=== PATIENT | female | born 1985 | race Two or more races ===

== ENCOUNTER 2017-07-15 15:03 | Emergency (ER) | payer MEDICAID ==
[~2017-07-15] VITALS: Ht 157.5 cm; Wt 90.7 kg
[2017-07-15 15:55] LABS: Basophils # (auto) 0 uL; Basophils % (auto) 0.3 % (0.0-2.0); Eosinophils # (auto) 0.1 uL; Hematocrit 42.7 % (36.0-46.0); Lymphocytes # (auto) 4.5 uL; Lymphocytes % (auto) 31.2 % (10.0-50.0); Mean Corpuscular Hemoglobin 30.4 pg (28.0-32.0); Mean Corpuscular Hgb Conc. 32.9 g/dL (32.0-36.0); Mean Corpuscular Volume 92.6 fL (80.0-100.0); Mean Platelet Volume 7.5 fL (6.9-10.8); Monocytes # (auto) 1.1 uL; Monocytes % (auto) 7.3 % (0.0-12.0); Neutrophils # (auto) 8.7 uL; Neutrophils % (auto) 60.2 % (37.0-80.0); Nucleated Red Blood Cells % 0.1 %; Platelet Count (auto) 322 10^3/uL (140-450); Red Cell Distribution Width 13.2 % (11.8-14.3); White Blood Cell 14.5 10^3/uL (4.4-10.8)
[2017-07-15 15:57] LABS: Albumin 3.6 g/dL (3.4-5.0); BUN/Creatinine Ratio 15.6; Calcium 9.3 mg/dL (8.5-10.1)
[2017-07-15 16:00] LABS: Bilirubin, Total 0.5 mg/dL (0.2-1.0)
[2017-07-15 16:27] LABS: Urine Bilirubin Negative (Negative); Urine Blood Negative /uL (Negative); Urine Color Yellow (Yellow); Urine Glucose Normal (Normal); Urine Ketone Negative (Negative); Urine Mucus FEW (None Seen); Urine Nitrite Negative (Negative); Urine RBC <1 /hpf (0 - 4); Urine Squamous Epithelial Cell MOD /hpf (<5); Urine Urobilinogen Normal (Negative); Urine pH 5.5 (5.0-8.0)
[2017-07-15 16:30] VITALS: BP 132/81
[2017-07-15] MEDS ORDERED: SODIUM CHLORIDE 0.9% 1,000 ML IVB ONE (16:54)
[2017-07-15] MEDS ORDERED: METOCLOPRAMIDE HCL 5MG/ml INJ 2ml VIAL IV ONE (17:00)
[2017-07-15] MEDS ORDERED: KETOROLAC TROMETH 30 MG/ML 1ML VIAL IV ONE (17:00)
[2017-07-15 17:17] LABS: Magnesium 2.6 mg/dL (1.6-2.6)
== END 2017-07-15 18:24 | disposition home or self-care (01) ==
LOC: ER 15:11
DX: N39.0 Urinary tract infection, site not specified (principal); K59.00 Constipation, unspecified
CPT/HCPCS: 36415; 74176; 80053; 81001; 83690; 83735; 84443; 84702; 85025; 96361; 96374; 96375; 99285; J1885; J2765

== ENCOUNTER 2018-09-06 13:15 | Emergency (ER) | payer MEDICAID ==
[~2018-09-06] VITALS: Ht 160 cm; Wt 95.3 kg
[2018-09-06 13:38] VITALS: BP 135/80
[2018-09-06] MEDS ORDERED: SODIUM CHLORIDE 0.9% 1,000 ML IVB ONE (14:01)
[2018-09-06 14:19] LABS: Urine Bacteria NONE SEEN /hpf (None Seen); Urine Blood Negative /uL (Negative); Urine Mucus FEW (None Seen); Urine Specific Gravity 1.026 (1.001-1.035); Urine WBC 1 /hpf (0 - 5)
[2018-09-06 14:21] LABS: Basophils # (auto) 0.1 uL; Basophils % (auto) 0.5 % (0.0-2.0); Eosinophils # (auto) 0.1 uL; Eosinophils % (auto) 0.7 % (0.0-7.0); Hematocrit 43.4 % (36.0-46.0); Hemoglobin 14.4 g/dL (12.2-16.2); Lymphocytes # (auto) 3.4 uL; Lymphocytes % (auto) 32.3 % (10.0-50.0); Mean Corpuscular Hemoglobin 30.6 pg (28.0-32.0); Mean Corpuscular Hgb Conc. 33.2 g/dL (32.0-36.0); Mean Corpuscular Volume 92.2 fL (80.0-100.0); Monocytes # (auto) 0.8 uL; Monocytes % (auto) 7.3 % (0.0-12.0); Neutrophils # (auto) 6.2 uL; Neutrophils % (auto) 59.2 % (37.0-80.0); Platelet Count (auto) 277 10^3/uL (140-450); Red Blood Cells 4.71 10^6/uL (4.0-5.20); Red Cell Distribution Width 13.5 % (11.8-14.3); White Blood Cell 10.5 10^3/uL (4.4-10.8)
[2018-09-06 14:32] LABS: Albumin 3.5 g/dL (3.4-5.0); BUN/Creatinine Ratio 10.1; Calcium 8.5 mg/dL (8.5-10.1); Potassium 4.3 mmol/L (3.5-5.1)
[2018-09-06 14:33] LABS: Magnesium 2.4 mg/dL (1.6-2.6)
[2018-09-06 14:33] LABS: Urine Pregnacy Test Negative (Negative)
[2018-09-06 14:34] LABS: Alcohol, Urine < 3.0 mg/dL (0-5); Amphetamine Screen, Urine POSITIVE (NEGATIVE); Barbiturate Scree,Urine NEGATIVE (NEGATIVE); Benzodiazephine Screen, Urine NEGATIVE (NEGATIVE); Cannabinoid Screen, Urine NEGATIVE (NEGATIVE); Cocaine Screen, Urine NEGATIVE (NEGATIVE); Opiate Scree,Urine NEGATIVE (NEGATIVE); Phencyclidine Screen, Urine NEGATIVE (NEGATIVE)
[2018-09-06 14:35] LABS: Bilirubin, Total 0.5 mg/dL (0.2-1.0); Total Protein 7.8 g/dL (6.4-8.2)
== END 2018-09-06 15:32 | disposition home or self-care (01) ==
LOC: ER 13:22
DX: H81.10 Benign paroxysmal vertigo, unspecified ear (principal); F15.10 Other stimulant abuse, uncomplicated; E78.5 Hyperlipidemia, unspecified; I10 Essential (primary) hypertension; K74.60 Unspecified cirrhosis of liver; Z90.49 Acquired absence of other specified parts of digestive tract
CPT/HCPCS: 36415; 80053; 80307; 81001; 81025; 83735; 84484; 85025; 93005; 94761; 96360; 99285; J7030

== ENCOUNTER 2020-06-23 12:15 | Emergency (ER) | payer MEDICAID ==
[~2020-06-23] VITALS: Ht 160 cm; Wt 86.2 kg
[2020-06-23 12:18] VITALS: BP 126/77
== END 2020-06-23 13:36 | disposition home or self-care (01) ==
LOC: ER 12:15
DX: H66.93 Otitis media, unspecified, bilateral (principal)

== ENCOUNTER 2021-01-18 09:45 | Emergency (ER) | payer MEDICAID ==
[~2021-01-18] VITALS: Ht 160 cm; Wt 87.1 kg
[2021-01-18 09:47] VITALS: BP 128/71
== END 2021-01-18 10:40 | disposition home or self-care (01) ==
LOC: ER 09:45
DX: H60.91 Unspecified otitis externa, right ear (principal); E78.5 Hyperlipidemia, unspecified; I10 Essential (primary) hypertension

== ENCOUNTER 2021-05-01 06:09 | Emergency (ER) | payer MEDICAID ==
[~2021-05-01] VITALS: Ht 162.6 cm; Wt 90.7 kg
[2021-05-01 06:09] VITALS: BP 147/99
[2021-05-01] MEDS ORDERED: KETOROLAC TROMETH 60MG/2ML VIAL IM ONE (07:00)
[2021-05-01] MEDS ORDERED: cefTRIAXone SOD 1,000 MG VL IM ONE (07:00)
== END 2021-05-01 07:35 | disposition home or self-care (01) ==
LOC: ER 06:09
DX: H66.91 Otitis media, unspecified, right ear (principal); H60.91 Unspecified otitis externa, right ear; E78.5 Hyperlipidemia, unspecified; I10 Essential (primary) hypertension
CPT/HCPCS: 96372; 99284; J0696; J1885